=== PATIENT | male | born 1970 | race Caucasian/White ===

== ENCOUNTER 2020-07-21 15:08 | Emergency (ER) | payer OTHER ==
[2020-07-21] MEDS ORDERED: BAMLANIVIMAB 700 MG in SODIUM CHLORIDE 180 ML IVPB ONE (15:37)
[2020-07-21 15:39] VITALS: PULSE 72; BMI 38.0
[2020-07-21 17:02] LABS: BASO % 0.6 % (0-2.0); EOS % 0.6 % (0-4.5); LYMPH % 14.7 % (8-40); MEAN CELL VOLUME 88.3 fl (80-96); MEAN PLT VOLUME 10.3 fl (7.5-11.1); MONO % 17.5 % (3.8-10.2); NEUT % 66.6 % (42.8-82.8); PLATELET COUNT 175 K/MM3 (134-434); RBC 4.98 M/mm3 (4.00-5.60); RDW 13.9 % (11.9-15.9); WHITE BLOOD COUNT 5.1 K/mm3 (4.0-10.0)
[2020-07-21 17:28] LABS: CALCIUM 8.6 mg/dL (8.5-10.1)
[2020-07-21 17:29] LABS: ALBUMIN 4.1 g/dl (3.4-5.0); BLOOD UREA NITROGEN 11.6 mg/dL (7-18)
[2020-07-21 17:32] LABS: CREATININE 1.1 mg/dL (0.55-1.3)
[2020-07-21 17:33] LABS: BILIRUBIN,TOTAL 1.1 mg/dL (0.2-1); TOT PROT 7.5 g/dl (6.4-8.2)
[2020-07-21 17:58] VITALS: TEMP 99
[2020-07-21 18:56] VITALS: BP 124/76
== END 2020-07-21 18:56 | disposition home or self-care (01) ==
LOC: JER 15:08
DX: U07.1 COVID-19 (principal)
CPT/HCPCS: 36415; 80053; 85025; 99284-25; M0239; Q0239